=== PATIENT | female | born 1945 | race Caucasian/White ===

== ENCOUNTER 2022-12-02 07:23 | Emergency (ER) | payer MEDICARE ==
[~2022-12-02] VITALS: Ht 162.6 cm; Wt 69.8 kg
[2022-12-02] MEDS ORDERED: FOLI1 PO (07:42)
[2022-12-02] MEDS ORDERED: DILT120ERA PO (07:42)
[2022-12-02] MEDS ORDERED: POTA10T PO (07:42)
[2022-12-02] MEDS ORDERED: PRED20 PO (07:42)
[2022-12-02] MEDS ORDERED: OMEP20ER PO (07:42)
[2022-12-02 08:20] LABS: BASOPHILS ABSOLUTE AUTO 0.04 K/mm3 (0.00-0.23); BASOPHILS PERCENT AUTO 0 % (0-2); EOSINOPHILS ABSOLUTE AUTO 0.02 K/mm3 (0.00-0.68); EOSINOPHILS PERCENT AUTO 0 % (0-6); Hematocrit 25.4 % (33.0-51.0); Hemoglobin 8.2 g/dL (11.5-16.0); IMMATURE GRAN ABSOLUTE AUTO 0.44 K/mm3 (0.00-0.10); IMMATURE GRAN PERCENT AUTO 2 % (0-1); LYMPHOCYTES PERCENT AUTO 4 % (21-46); MONOCYTES ABSOLUTE AUTO 1.13 K/mm3 (0.16-1.47); MONOCYTES PERCENT AUTO 6 % (4-13); Mean Corpuscular HGB 37.6 pg (26.0-34.0); Mean Corpuscular HGB Conc 32.3 g/dL (31.5-36.5); Mean Corpuscular Volume 117 fL (80-100); Mean Platelet Volume 11.5 fL (9.1-12.4); NEUTROPHILS ABSOLUTE AUTO 18.11 K/mm3 (1.96-9.15); NEUTROPHILS PERCENT AUTO 88 % (41-73); NRBC ABSOLUTE 0.08 K/mm3 (0.00-0.02); NRBC Auto 0.4 /100 WBC (0.0-0.2); Platelet Count 252 K/mm3 (150-400); RDW Coefficient Variation 18.5 % (11.7-14.2); RDW Standard Deviation 78.3 fL (35.1-46.3); Red Blood Cell Count 2.18 M/mm3 (3.80-5.20); White Blood Cell Count 20.54 K/mm3 (4.00-11.30)
[2022-12-02 08:32] LABS: Albumin/Globulin Ratio 1.2 (0.8-1.8); Bun/Creatinine Ratio 30.5 (12.0-20.0); Calcium, Blood 8.4 mg/dL (8.5-10.1); Creatinine, Blood 0.69 mg/dL (0.40-1.00); Globulin, Blood 2.5 g/dL (2.2-4.0); Magnesium, Blood 2.5 mg/dL (1.6-2.4); Potassium, Blood 3.8 mmol/L (3.5-5.5); Total Protein, Blood 5.5 g/dL (6.4-8.2)
[2022-12-02 09:30] VITALS: BP 98/62
== END 2022-12-02 10:32 | disposition home or self-care (01) ==
LOC: ER 07:23
PROVIDERS: Student in an Organized Health Care Education/Training Program
DX: E86.0 Dehydration (principal); R42 Dizziness and giddiness; Z79.899 Other long term (current) drug therapy; R03.1 Nonspecific low blood-pressure reading
CPT/HCPCS: 71046; 80053; 83735; 85025; 86850; 86900; 86901; 93005; 93010; 99284-25; J7030

== ENCOUNTER 2022-12-04 01:01 | Emergency (ER) | payer MEDICARE ==
[~2022-12-04] VITALS: Ht 162.6 cm; Wt 63.5 kg
[~2022-12-04 01:01] MED LIST: DILT120ERA PO; FOLI1 PO; OMEP20ER PO; POTA10T PO; PRED20 PO
[2022-12-04 02:09] LABS: Albumin, Blood 2.6 g/dL (3.4-5.0); Albumin/Globulin Ratio 1.1 (0.8-1.8); Bilirubin, Total 2.6 mg/dL (0.1-1.0); Bun/Creatinine Ratio 27.5 (12.0-20.0); Creatinine, Blood 0.69 mg/dL (0.40-1.00); Globulin, Blood 2.3 g/dL (2.2-4.0); Total Protein, Blood 4.9 g/dL (6.4-8.2)
[2022-12-04 02:11] LABS: BASOPHILS ABSOLUTE AUTO 0.03 K/mm3 (0.00-0.23); BASOPHILS PERCENT AUTO 0 % (0-2); EOSINOPHILS ABSOLUTE AUTO 0.01 K/mm3 (0.00-0.68); EOSINOPHILS PERCENT AUTO 0 % (0-6); Hematocrit 22.9 % (33.0-51.0); Hemoglobin 7.4 g/dL (11.5-16.0); IMMATURE GRAN ABSOLUTE AUTO 0.34 K/mm3 (0.00-0.10); IMMATURE GRAN PERCENT AUTO 2 % (0-1); LYMPHOCYTES ABSOLUTE AUTO 0.28 K/mm3 (0.84-5.20); LYMPHOCYTES PERCENT AUTO 2 % (21-46); MONOCYTES PERCENT AUTO 5 % (4-13); Mean Corpuscular HGB 38.7 pg (26.0-34.0); Mean Corpuscular HGB Conc 32.3 g/dL (31.5-36.5); Mean Corpuscular Volume 120 fL (80-100); Mean Platelet Volume 11.8 fL (9.1-12.4); NEUTROPHILS ABSOLUTE AUTO 13.98 K/mm3 (1.96-9.15); NEUTROPHILS PERCENT AUTO 91 % (41-73); NRBC ABSOLUTE 0.05 K/mm3 (0.00-0.02); NRBC Auto 0.3 /100 WBC (0.0-0.2); Platelet Count 195 K/mm3 (150-400); RDW Coefficient Variation 18.4 % (11.7-14.2); RDW Standard Deviation 79.7 fL (35.1-46.3); Red Blood Cell Count 1.91 M/mm3 (3.80-5.20); White Blood Cell Count 15.34 K/mm3 (4.00-11.30)
[2022-12-04 03:13] VITALS: BP 135/85
== END 2022-12-04 03:10 | disposition home or self-care (01) ==
LOC: ER 01:01
PROVIDERS: Emergency Medicine
DX: I48.0 Paroxysmal atrial fibrillation (principal); D64.9 Anemia, unspecified; D72.829 Elevated white blood cell count, unspecified; Z79.899 Other long term (current) drug therapy
CPT/HCPCS: 80053; 85025; 93005; 93010; 99285-25

== ENCOUNTER 2022-12-05 02:47 | Observation (INO) | payer MEDICARE ==
[~2022-12-05] VITALS: Ht 162.6 cm; Wt 64.9 kg
[2022-12-05 03:18] LABS: BASOPHILS ABSOLUTE AUTO 0.02 K/mm3 (0.00-0.23); BASOPHILS PERCENT AUTO 0 % (0-2); EOSINOPHILS PERCENT AUTO 0 % (0-6); Hematocrit 26.6 % (33.0-51.0); Hemoglobin 8.4 g/dL (11.5-16.0); IMMATURE GRAN ABSOLUTE AUTO 0.17 K/mm3 (0.00-0.10); IMMATURE GRAN PERCENT AUTO 1 % (0-1); LYMPHOCYTES ABSOLUTE AUTO 1.02 K/mm3 (0.84-5.20); LYMPHOCYTES PERCENT AUTO 6 % (21-46); MONOCYTES ABSOLUTE AUTO 0.91 K/mm3 (0.16-1.47); MONOCYTES PERCENT AUTO 6 % (4-13); Mean Corpuscular HGB 37.8 pg (26.0-34.0); Mean Corpuscular HGB Conc 31.6 g/dL (31.5-36.5); Mean Corpuscular Volume 120 fL (80-100); Mean Platelet Volume 11.4 fL (9.1-12.4); NEUTROPHILS ABSOLUTE AUTO 14.29 K/mm3 (1.96-9.15); NEUTROPHILS PERCENT AUTO 87 % (41-73); NRBC ABSOLUTE 0.06 K/mm3 (0.00-0.02); NRBC Auto 0.4 /100 WBC (0.0-0.2); Platelet Count 230 K/mm3 (150-400); RDW Coefficient Variation 18.4 % (11.7-14.2); RDW Standard Deviation 79.6 fL (35.1-46.3); Red Blood Cell Count 2.22 M/mm3 (3.80-5.20); White Blood Cell Count 16.41 K/mm3 (4.00-11.30)
[2022-12-05 03:40] LABS: Albumin, Blood 2.9 g/dL (3.4-5.0); Albumin/Globulin Ratio 1.1 (0.8-1.8); Bilirubin, Total 3.1 mg/dL (0.1-1.0); Calcium, Blood 8.4 mg/dL (8.5-10.1); Creatinine, Blood 0.73 mg/dL (0.40-1.00); Globulin, Blood 2.6 g/dL (2.2-4.0); Magnesium, Blood 2.3 mg/dL (1.6-2.4); Potassium, Blood 4.6 mmol/L (3.5-5.5); Thyroid Stimulating Hormone 1.06 uIU/mL (0.360-4.800); Total Protein, Blood 5.5 g/dL (6.4-8.2)
[2022-12-05 03:46] LABS: International Normalized Ratio 0.98; Prothrombin Time Results 10.3 Sec (9.7-11.5)
[2022-12-05 06:18] LABS: Free Thyroxine 0.68 ng/dL (0.70-1.60); Thyroid Stimulating Hormone 0.877 uIU/mL (0.360-4.800)
[2022-12-05 06:28] LABS: Source, Urine Clean Catch
[2022-12-05 06:30] VITALS: BP 106/73
[2022-12-05 06:31] LABS: Appearance, Urine Clear (Clear); Bilirubin, Urine Neg (Neg); Blood, Urine Neg (Neg); Color, Urine Yellow (P-Yellow); Glucose Qualitative, Urine Neg (Neg); Ketones, Urine Neg (Neg); Leukocyte Esterase, Urine Neg (Neg); Nitrite, Urine Neg (Neg); Protein, Urine Neg (Neg); Urobilinogen, Urine 1+ (Normal)
--- NOTE | 2022-12-05 07:26 | NUR ---
PT ARRIVED FROM ER AT 0630 REPORT RECIEVED FROM SUSI GALLEGO. PT IS A/O, PLEASANT AND COOPERATIVE. AT BEDSIDE. SR 90'S TO 100'S. BP SOFT. O2 SAT 100% ON ROOM AIR. DENIES NAUSEA, NO VOMITING. VOIDS USING BSC W/STANDBY ASSIST. SKIN INTACT. PIV X1, SL. ORIENTED TO ROOM AND UNIT. ALL QUESIONS ANSWERED. BEDSIDE REPORT GIVEN TO ONCOMING RN, POC ONGOING.
[2022-12-05 08:17] VITALS: BP 92/63
[2022-12-05 11:44] VITALS: BP 92/62
[2022-12-05 14:50] LABS: Stool Occult Blood Guaiac 1 Pos (Neg)
[2022-12-05 15:17] VITALS: BP 94/59
--- NOTE | 2022-12-05 17:02 | NUR ---
END OF SHIFT NOTE PT A&OX4 T/O SHIFT. PLEASANT AND COOPERATIVE WITH CARE. ABLE TO CALL APPROPRIATELY AND MAKE NEEDS KNOWN TO STAFF. HR NSR/SINUS TACH, 90-100'S. SBP 90'S, DENIES CHEST PAIN/PRESSURE. SPO2 >95% ON RA, DENIES SOB. SBA TO BSC, 1 BM THIS SHIFT. GUAIAC STOOL SAMPLE SENT. LAC IV INFUSING NS AT 100ML/HR PER EMAR. TOLERATING DIET WELL. SPOUSE AT BEDSIDE T/O SHIFT. NO OTHER EVENTS. CALL LIGHT WITHIN REACH, BED IN LOWEST POSITION. WILL REPORT TO ONCOMING NOC RN.
[2022-12-05 20:00] VITALS: BP 104/69
[2022-12-06] VITALS (13 sets, daily range): BP systolic 96–128; BP diastolic 66–88
[2022-12-06 03:18] LABS: BASOPHILS ABSOLUTE AUTO 0.01 K/mm3 (0.00-0.23); BASOPHILS PERCENT AUTO 0 % (0-2); EOSINOPHILS PERCENT AUTO 0 % (0-6); Hematocrit 18.7 % (33.0-51.0); Hemoglobin 6.2 g/dL (11.5-16.0); IMMATURE GRAN ABSOLUTE AUTO 0.09 K/mm3 (0.00-0.10); IMMATURE GRAN PERCENT AUTO 1 % (0-1); LYMPHOCYTES ABSOLUTE AUTO 0.27 K/mm3 (0.84-5.20); LYMPHOCYTES PERCENT AUTO 4 % (21-46); MONOCYTES ABSOLUTE AUTO 0.48 K/mm3 (0.16-1.47); MONOCYTES PERCENT AUTO 6 % (4-13); Mean Corpuscular HGB 39.2 pg (26.0-34.0); Mean Corpuscular HGB Conc 33.2 g/dL (31.5-36.5); Mean Corpuscular Volume 118 fL (80-100); Mean Platelet Volume 10.9 fL (9.1-12.4); NEUTROPHILS ABSOLUTE AUTO 6.64 K/mm3 (1.96-9.15); NEUTROPHILS PERCENT AUTO 89 % (41-73); NRBC ABSOLUTE 0.04 K/mm3 (0.00-0.02); NRBC Auto 0.5 /100 WBC (0.0-0.2); Platelet Count 146 K/mm3 (150-400); RDW Coefficient Variation 18.6 % (11.7-14.2); RDW Standard Deviation 78.5 fL (35.1-46.3); Red Blood Cell Count 1.58 M/mm3 (3.80-5.20); White Blood Cell Count 7.49 K/mm3 (4.00-11.30)
[2022-12-06 03:44] LABS: Albumin, Blood 2.2 g/dL (3.4-5.0); Bun/Creatinine Ratio 29.1 (12.0-20.0); Calcium, Blood 7.3 mg/dL (8.5-10.1); Creatinine, Blood 0.65 mg/dL (0.40-1.00); Globulin, Blood 2.2 g/dL (2.2-4.0); Percent Saturation 33.8 % (15.0-50.0); Potassium, Blood 3.8 mmol/L (3.5-5.5); Total Protein, Blood 4.4 g/dL (6.4-8.2)
--- NOTE | 2022-12-06 03:59 | NUR ---
PHYSICIAN COMMUNICATION CONTACTED DR VALENCIA TO NOTIFY HER THAT THE PATIENT'S HEMEGLOBIN WAS 6.[address] VALENCIA ORDERED ONE UNIT OF PRBC'S AND REPEAT H&H ONE HOUR AFTER TRANSFUSION.
--- NOTE | 2022-12-06 05:31 | NUR ---
SHIFT SUMMARY PATIENT ALERT AND ORIENTED X4. STAND BY ASSIST TO THE BEDSIDE COMMODE. PATIENT IS CURRENTLY RECEIVING A UNIT OF PRBC'S, DENIES DIZZINES, SHORTNESS OF BREATH, AND CHEST PAIN. SPO2 100% ON ROOM AIR. VITAL SIGNS STABLE. WILL CONTINUE TO MONITOR. CALL LIGHT WITHIN REACH.
[2022-12-06] MEDS ORDERED: DILT120 PO (10:52)
[2022-12-06 13:41] LABS: Hemoglobin 10.3 g/dL (11.5-16.0)
[2022-12-06 13:46] LABS: Hematocrit 30.4 % (33.0-51.0)
--- NOTE | 2022-12-06 16:19 | NUR ---
D/C SUMMARY PT WAS D/C'D AT 1600. I WENT OVER D/C PAPERWORK WITH HER AND HER . THE PT'S IV WAS PULLED BY THE SHANTELL MCKINNEY. ALL BELONGING'S WERE PICKED UP BY THE PT'S . VS STABLE.
== END 2022-12-06 16:00 | disposition home or self-care (01) ==
LOC: ER 02:47 → PCU 02:48
PROVIDERS: Emergency Medicine; Internal Medicine; ADMIT Internal Medicine
DX: I48.0 Paroxysmal atrial fibrillation (principal); E86.0 Dehydration; E87.20 Acidosis, unspecified; I95.9 Hypotension, unspecified; D64.9 Anemia, unspecified
CPT/HCPCS: 36415; 36430; 71045; 71260; 80053; 80400; 81003; 82272; 82533; 82728; 83540; 83550; 83605; 83735; 83880; 84145; 84439; 84443; 84484; 85014; 85018; 85025; 85379; 85610; 85730; 86850; 86900; 86901; 86923; 93005; 93010; 93306; 96360-59; 96361; 96361-59; 96372; 96374; 97110; 97161; 97165; 97535; 99285-25; A9270; G0378; J0834; J1650; J7030; J7040; J7512; P9016; Q9967

== ENCOUNTER 2022-12-17 01:18 | Emergency (ER) | payer MEDICARE ==
[~2022-12-17] VITALS: Ht 162.6 cm; Wt 65.8 kg
[~2022-12-17 01:18] MED LIST changes: +DILT120 PO
[2022-12-17 01:21] LABS: BASOPHILS ABSOLUTE AUTO 0.07 K/mm3 (0.00-0.23); BASOPHILS PERCENT AUTO 1 % (0-2); EOSINOPHILS ABSOLUTE AUTO 0.01 K/mm3 (0.00-0.68); EOSINOPHILS PERCENT AUTO 0 % (0-6); Hematocrit 32.3 % (33.0-51.0); Hemoglobin 10.8 g/dL (11.5-16.0); LYMPHOCYTES ABSOLUTE AUTO 0.93 K/mm3 (0.84-5.20); LYMPHOCYTES PERCENT AUTO 8 % (21-46); MONOCYTES ABSOLUTE AUTO 0.94 K/mm3 (0.16-1.47); MONOCYTES PERCENT AUTO 8 % (4-13); Mean Corpuscular HGB 33.5 pg (26.0-34.0); Mean Corpuscular HGB Conc 33.4 g/dL (31.5-36.5); Mean Platelet Volume 11.3 fL (9.1-12.4); NEUTROPHILS ABSOLUTE AUTO 8.64 K/mm3 (1.96-9.15); NEUTROPHILS PERCENT AUTO 77 % (41-73); Platelet Count 237 K/mm3 (150-400); RDW Coefficient Variation 25.8 % (11.7-14.2); Red Blood Cell Count 3.22 M/mm3 (3.80-5.20); White Blood Cell Count 11.23 K/mm3 (4.00-11.30)
[2022-12-17 01:22] LABS: Mean Corpuscular Volume 100 fL (80-100)
[2022-12-17 01:40] LABS: Albumin, Blood 2.7 g/dL (3.4-5.0); Albumin/Globulin Ratio 1.1 (0.8-1.8); Bilirubin, Total 4.1 mg/dL (0.1-1.0); Bun/Creatinine Ratio 36.9 (12.0-20.0); Calcium, Blood 8.3 mg/dL (8.5-10.1); Creatinine, Blood 0.76 mg/dL (0.40-1.00); Globulin, Blood 2.5 g/dL (2.2-4.0); Potassium, Blood 4.1 mmol/L (3.5-5.5); Total Protein, Blood 5.2 g/dL (6.4-8.2)
[2022-12-17 04:00] VITALS: BP 106/72
== END 2022-12-18 04:10 | disposition home or self-care (01) ==
LOC: ER 01:18
PROVIDERS: Student in an Organized Health Care Education/Training Program
DX: I48.91 Unspecified atrial fibrillation (principal); Z79.899 Other long term (current) drug therapy
CPT/HCPCS: 71046; 80053; 84484; 85025; 93005; 93010; 99285-25

== ENCOUNTER 2024-03-11 12:17 | Day surgery (SDC) | payer MEDICARE ==
[~2024-03-11] VITALS: Ht 162.6 cm; Wt 67.0 kg
[~2024-03-11 12:17] MED LIST changes: +Balanced Salt Epinephrine Irrigation Solution 500 mL IR SCH; +Lidocaine HCl/Pf 1% 5 ML VIAL XX SCH; +Moxifloxacin HCL 0.5 MG/0.1 ML 0.4MLSYR RIGHTEYE SCH; +PHENYLEPHRINE\\TROPICAMIDE\\TETRACAINE OPHTHALMIC DILATING SOLN RIGHTEYE PRN; +Povidone-Iodine 450 DROP/30 ML Solution RIGHTEYE SCH
[2024-03-11] MEDS ORDERED: Diazepam 2 MG Tab ONE (12:30)
[2024-03-11] MEDS ORDERED: Bisoprolol Fumar5 MG PO (12:47)
--- NOTE | 2024-03-11 12:52 | NUR ---
03/11/24 1252 Dank Hernandez CALL LIGHT WITHIN REACH. TETRACAINE IN RIGHT EYE AT 1248 AND LEFT EYE AT 1249
[2024-03-11] MEDS ORDERED: Tetracaine HCl 0.5% Opth Soln 15 ml RIGHTEYE ONE (13:21)
[2024-03-11 14:14] VITALS: BP 133/83
[2024-03-11] MEDS ORDERED: Povidone-Iodine 450 DROP/30 ML Solution XX ONE (15:37)
== END 2024-03-11 14:12 | disposition home or self-care (01) ==
LOC: ORSCSDS 12:17
PROVIDERS: Student in an Organized Health Care Education/Training Program
PROC: 08RJ3JZ Replacement of Right Lens with Synthetic Substitute, Percutaneous Approach (ICD-10-PCS; principal; 2024-03-11 13:45)
DX: H25.813 Combined forms of age-related cataract, bilateral (principal); H52.201 Unspecified astigmatism, right eye; I10 Essential (primary) hypertension; H35.3132 Nonexudative age-related macular degeneration, bilateral, intermediate dry stage; Z79.899 Other long term (current) drug therapy
CPT/HCPCS: A9270; V2632

== ENCOUNTER 2024-03-18 12:08 | Day surgery (SDC) | payer MEDICARE ==
[~2024-03-18] VITALS: Ht 162.6 cm; Wt 67.0 kg
[~2024-03-18 12:08] MED LIST changes: +Bisoprolol Fumar5 MG PO; +Moxifloxacin HCL 0.5 MG/0.1 ML 0.4MLSYR LEFTEYE SCH; -Moxifloxacin HCL 0.5 MG/0.1 ML 0.4MLSYR RIGHTEYE SCH; +Ondansetron HCl 2 MG / ML 2ML Vial ONE; +PHENYLEPHRINE\\TROPICAMIDE\\TETRACAINE OPHTHALMIC DILATING SOLN LEFTEYE PRN; -PHENYLEPHRINE\\TROPICAMIDE\\TETRACAINE OPHTHALMIC DILATING SOLN RIGHTEYE PRN; +Povidone-Iodine 450 DROP/30 ML Solution LEFTEYE SCH; +Povidone-Iodine 450 DROP/30 ML Solution ONE; -Povidone-Iodine 450 DROP/30 ML Solution RIGHTEYE SCH; +Tetracaine HCl/Pf 0.5% Opth Soln 4 ml ONE
[2024-03-18] MEDS ORDERED: Diazepam 2 MG Tab ONE (12:18)
[2024-03-18] MEDS ORDERED: CALCIUM 600 +1 EA11 PO (12:46)
[2024-03-18] MEDS ORDERED: PRESERVISION A1 EAC2 PO (12:46)
[2024-03-18] MEDS ORDERED: RED YEAST RICE55 MG PO (12:47)
[2024-03-18] MEDS ORDERED: FISH OIL 1,0001 EA10 PO (12:47)
[2024-03-18] MEDS ORDERED: FLAX PO (12:50)
[2024-03-18 13:47] VITALS: BP 181/88
== END 2024-03-18 13:55 | disposition home or self-care (01) ==
LOC: ORSCSDS 12:08
PROVIDERS: Student in an Organized Health Care Education/Training Program
PROC: 08RK3JZ Replacement of Left Lens with Synthetic Substitute, Percutaneous Approach (ICD-10-PCS; principal; 2024-03-18 13:45)
DX: H25.812 Combined forms of age-related cataract, left eye (principal); H52.202 Unspecified astigmatism, left eye; Z96.1 Presence of intraocular lens; H35.3132 Nonexudative age-related macular degeneration, bilateral, intermediate dry stage; I48.91 Unspecified atrial fibrillation; I10 Essential (primary) hypertension; Z79.899 Other long term (current) drug therapy
CPT/HCPCS: A9270; J2405; V2632